=== PATIENT | female | born 2000 | race Caucasian/White ===

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

== ENCOUNTER → 2023-06-21 | Outpatient (CLI) | payer OTHER | LOC: M RAD 14:56 | PROVIDERS: ATTEND Family Medicine | DX: N93.0 Postcoital and contact bleeding (principal) ==

== ENCOUNTER → 2023-12-10 | Outpatient (CLI) | payer OTHER ==
[2023-12-10 08:08] LABS: CHOLESTEROL RISK RATIO 4.75 (<5); HDL CHOLESTEROL 51.1 MG/DL (>40); LDL CHOLESTEROL 157.7 MG/DL (<100); NON-HDL-C 191.9 MG/DL
== END ==
LOC: M LAB 07:05
PROVIDERS: ATTEND Family Medicine
DX: E78.00 Pure hypercholesterolemia, unspecified (principal)